=== PATIENT | female | born 1950 | race Caucasian/White ===

== ENCOUNTER 2021-01-26 09:15 | Outpatient (CLI) | payer OTHER | END 2021-01-26 09:18 | disposition home or self-care (01) | LOC: SONOGRAMA 09:15 | PROVIDERS: ATTEND Pathology Anatomic Pathology & Clinical Pathology | DX: E04.1 Nontoxic single thyroid nodule (principal) ==

== ENCOUNTER 2024-02-03 11:43 | Inpatient (IN) | payer OTHER ==
[~2024-02-03] VITALS: Ht 162.6 cm; Wt 58.1 kg
[2024-02-03] MEDS ORDERED: PRED FORTE5 ML (11:48)
[2024-02-03] MEDS ORDERED: CANDESARTAN CILE8 M1 (11:48)
--- NOTE | 2024-02-03 11:59 | NUR ---
PTE ALERTA Y ORIENTADA X3, LA MISMA SE OBSERVA CON ATAQUE DE ASMA, REFIERE QUE LLEVA ASI HACE 3 ELIAS. SAT.91% 133LPM SE REALIZA EKG Y SE PRESENTA A . SE UBICA EN AU.
[2024-02-03] MEDS ORDERED: LEVALBUTEROL HCL 1.25 MG/3 ML SOLUTION IH SCH ×2 (12:15→21:00)
[2024-02-03] MEDS ORDERED: 0.9 % SODIUM CHLORIDE 1,000 ML IV SCH ×2 (12:15→19:45)
[2024-02-03] MEDS ORDERED: METHYLPREDNISOLONE SOD SUCC 125 MG VIAL IV ONE (12:15)
--- NOTE | 2024-02-03 12:29 | NUR ---
SE EDUCA A PTE SOBRE TX A REALIZAR LA MISMA REFIERE ENTENDER. SE REALIZAN MUESTRAS JEOVANNY ORDEN MEDICA Y SE CANALIZA PTE COLOCANDOLE IVFLUIDS. SE COLOCA CANULA NASAL A 2 LITROS Y SE RAFAEL PTE EN [place].
[2024-02-03 12:32] LABS: HEMATOCRIT 39.5 % (36.0-45.00); HEMOGLOBIN 13.1 g/dL (12.0-15.00); MEAN CORPUSCULAR HEMOGLOBIN 28.9 pg (27.00-32.0); MEAN CORPUSCULAR HGB CONC 33.2 g/dl (32.0-36.0); PLATELET COUNT 248 K/uL (150-450); RED BLOOD COUNT 4.54 M/uL (4.00-6.00); RED CELL DISTRIBUTION WIDTH 14.6 % (11.5-14.5)
[2024-02-03 12:56] LABS: ABG PH 7.471 (7.35-7.45); ABG PO2 63.8 mmHg (80-100); ABG pCO2 32.8 mmHg (35-45); BASE EXCESS 0.5 mmol/l; BICARBONATE 23.4 mmol/l (23-25); SaO2 93.6 %; Tco2 24.4 mmol/l
[2024-02-03 12:56] LABS: ALBUMIN 3.4 gm/dL (3.4-5.0); BILIRUBIN TOTAL 0.56 mg/dL (0.3-1.2); CALCIUM 10.6 mg/dL (8.5-10.1); CREATININE SERUM 1.17 mg/dL (0.55-1.02); GFR 45.22; GLOBULINA 4.4 G/DL (2.4-3.5); POTASSIUM 4.28 mEq/L (3.5-5.1); TOTAL PROTEIN 7.8 gm/dL (6.4-8.2)
[2024-02-03 12:57] LABS: allen test SATISFACTORY; o2 21 %; puncture site RADIAL RIGHT
[2024-02-03] MEDS ORDERED: CEFEPIME HCL 2,000 MG VIAL IV ONE (14:00)
[2024-02-03] MEDS ORDERED: ACETAMINOPHEN 500 MG GEL..CAP PO ONE (14:00)
[2024-02-03] MEDS ORDERED: ACETAMINOPHEN 500 MG GEL..CAP PO PRN (19:45)
[2024-02-03] MEDS ORDERED: MONTELUKAST SODIUM 10 MG TABLET PO SCH (19:47)
[2024-02-03] MEDS ORDERED: CEFTRIAXONE SODIUM 2,000 MG in 0.9 % SODIUM CHLORIDE 100 ML IV SCH (19:48)
[2024-02-03] MEDS ORDERED: ONDANSETRON HCL 4 MG in 0.9 % SODIUM CHLORIDE 50 ML IV PRN (20:00)
[2024-02-03] MEDS ORDERED: GUAIFEN/DEXTROMETHORPHAN/PE 10 ML BLIST.PACK PO SCH (21:00)
[2024-02-03] MEDS ORDERED: AZITHROMYCIN 500 MG in DEXTROSE 5 % IN WATER 250 ML IV SCH (21:00)
[2024-02-03] MEDS ORDERED: IPRATROPIUM BROMIDE 0.5 MG/2.5 ML AMPUL.NEB IH SCH (21:00)
[2024-02-03] MEDS ORDERED: METHYLPREDNISOLONE SOD SUCC 40 MG VIAL IV SCH (21:00)
[2024-02-03 21:29] LABS: URINE APPEARANCE Cloudy; URINE BILIRRUBIN Small (NEGATIVE); URINE BLOOD Negative; URINE COLOR Dark Yellow; URINE GLUCOSE Negative (NEGATIVE); URINE LEUKOCYTE Negative; URINE NITRATE Negative; URINE PROTEIN 30 (NEGATIVE)
[2024-02-03 21:30] LABS: MAGNESIUM 2.2 mg/dL (1.8-2.4)
[2024-02-03 21:30] LABS: URINE BACTERIA 200.3 uL (0.0-1933); URINE EPITHELIAL CELLS 52.4 uL (0.0-38.8); URINE RBC 40.4 uL (0.0-20.8); URINE WBC 16.2 uL (0.0-23.2)
[2024-02-03 21:33] LABS: D DIMER 0.86 MG/L; PARTIAL THROMBOPLASTIN TIME 30.6 SECONDS (22.0-34.0)
[2024-02-03 21:34] LABS: INR 1.06; PROTHROMBIN TIME 11.1 SECONDS (9.0-11.5)
[2024-02-03 21:51] LABS: C-REACTIVE PROTEIN 17.3 MG/DL (0.00-0.29)
[2024-02-03 22:03] LABS: URINE CRYSTALS MODERATE /HPF
[2024-02-04] MEDS ORDERED: IPRATROPIUM BROMIDE 0.5 MG/2.5 ML AMPUL.NEB IH SCH (09:00)
[2024-02-04] MEDS ORDERED: FAMOTIDINE/PF 20 MG in 0.9 % SODIUM CHLORIDE 8 ML IV PUSH SCH (09:00)
[2024-02-04] MEDS ORDERED: CANDESARTAN CILEXETIL 8 MG TAB PO SCH (09:00)
[2024-02-04] MEDS ORDERED: ENOXAPARIN SODIUM 40 MG/0.4 ML SYRINGE SUBCUTANEO SCH (09:00)
[2024-02-04] MEDS ORDERED: AMLODIPINE BESYLATE 2.5 MG TABLET PO SCH (09:00)
[2024-02-05 08:07] LABS: HEMATOCRIT 33.4 % (36.0-45.00); MEAN CELL VOLUME 86.3 fL (80.00-100.00); MEAN CORPUSCULAR HEMOGLOBIN 28.3 pg (27.00-32.0); MEAN CORPUSCULAR HGB CONC 32.8 g/dl (32.0-36.0); PLATELET COUNT 231 K/uL (150-450); RED BLOOD COUNT 3.87 M/uL (4.00-6.00); RED CELL DISTRIBUTION WIDTH 14.6 % (11.5-14.5)
[2024-02-05 08:52] LABS: ALBUMIN 2.8 gm/dL (3.4-5.0); BILIRUBIN TOTAL 0.28 mg/dL (0.3-1.2); CALCIUM 9.6 mg/dL (8.5-10.1); CREATININE SERUM 0.83 mg/dL (0.55-1.02); GFR 67.2; GLOBULINA 3.1 G/DL (2.4-3.5); MAGNESIUM 2.5 mg/dL (1.8-2.4); PHOSPHOROUS 2.3 mg/dL (2.5-4.9); POTASSIUM 4.82 mEq/L (3.5-5.1); TOTAL PROTEIN 5.9 gm/dL (6.4-8.2)
[2024-02-05 09:00] LABS: MYCOPLASMA PNEUMONIAE IGM NON REACTIVE (NO REACTIVE)
[2024-02-05] MEDS ORDERED: VANCOMYCIN HCL 1,000 MG VIAL IV SCH (17:00)
[2024-02-05] MEDS ORDERED: CEFEPIME HCL 2,000 MG VIAL IV SCH (21:00)
[2024-02-06] MEDS ORDERED: AMLODIPINE BESYLATE 5 MG TABLET PO SCH (09:00)
[2024-02-06] MEDS ORDERED: METHYLPREDNISOLONE SOD SUCC 40 MG VIAL IV SCH (09:00)
[2024-02-06] MEDS ORDERED: SODIUM CHLORIDE 0.45 % 1,000 ML IV SCH (10:30)
[2024-02-06 11:27] LABS: ABG PO2 173.1 mmHg (80-100); ABG pCO2 46.6 mmHg (35-45); BASE EXCESS 1.2 mmol/l; BICARBONATE 26.9 mmol/l (23-25); SaO2 99.5 %; Tco2 28.3 mmol/l; allen test SATISFACTORY; o2 32 %; puncture site RADIAL LEFT
[2024-02-06] MEDS ORDERED: PANTOPRAZOLE SODIUM 40 MG TABLET.DR PO SCH (12:00)
[2024-02-06] MEDS ORDERED: IPRATROPIUM BROMIDE 0.5 MG/2.5 ML AMPUL.NEB IH SCH (13:00)
[2024-02-06] MEDS ORDERED: BUDESONIDE 0.5 MG/2 ML AMPUL.NEB IH SCH (13:00)
[2024-02-06] MEDS ORDERED: RIVAROXABAN 10 MG TAB PO SCH (17:00)
[2024-02-07 07:20] LABS: HEMATOCRIT 36.6 % (36.0-45.00); MEAN CELL VOLUME 86.7 fL (80.00-100.00); MEAN CORPUSCULAR HEMOGLOBIN 28.3 pg (27.00-32.0); MEAN CORPUSCULAR HGB CONC 32.7 g/dl (32.0-36.0); PLATELET COUNT 245 K/uL (150-450); RED BLOOD COUNT 4.23 M/uL (4.00-6.00); RED CELL DISTRIBUTION WIDTH 14.7 % (11.5-14.5)
[2024-02-07 08:00] LABS: ALBUMIN 2.8 gm/dL (3.4-5.0); BILIRUBIN TOTAL 0.36 mg/dL (0.3-1.2); CALCIUM 9.2 mg/dL (8.5-10.1); CREATININE SERUM 0.61 mg/dL (0.55-1.02); GFR 95.88; GLOBULINA 3.2 G/DL (2.4-3.5); POTASSIUM 4.47 mEq/L (3.5-5.1)
[2024-02-07 08:02] LABS: C-REACTIVE PROTEIN 3.83 MG/DL (0.00-0.29)
[2024-02-07] MEDS ORDERED: METHYLPREDNISOLONE SOD SUCC 40 MG VIAL IV SCH (09:00)
[2024-02-07] MEDS ORDERED: CANDESARTAN CILEXETIL 16 MG TABLET PO SCH (09:00)
[2024-02-09] MEDS ORDERED: BUDESONIDE 0.5 MG/2 ML AMPUL.NEB IH SCH (09:00)
[2024-02-09] MEDS ORDERED: IPRATROPIUM BROMIDE 0.5 MG/2.5 ML AMPUL.NEB IH SCH (09:00)
[2024-02-10 08:40] LABS: HEMATOCRIT 37.1 % (36.0-45.00); HEMOGLOBIN 12.2 g/dL (12.0-15.00); MEAN CELL VOLUME 86.4 fL (80.00-100.00); MEAN CORPUSCULAR HEMOGLOBIN 28.4 pg (27.00-32.0); MEAN CORPUSCULAR HGB CONC 32.8 g/dl (32.0-36.0); PLATELET COUNT 285 K/uL (150-450); RED BLOOD COUNT 4.29 M/uL (4.00-6.00); RED CELL DISTRIBUTION WIDTH 14.4 % (11.5-14.5)
[2024-02-10 09:11] LABS: ALBUMIN 2.8 gm/dL (3.4-5.0); CALCIUM 9.5 mg/dL (8.5-10.1); CREATININE SERUM 0.64 mg/dL (0.55-1.02); GFR 90.71; PHOSPHOROUS 2.3 mg/dL (2.5-4.9); POTASSIUM 4.23 mEq/L (3.5-5.1)
[2024-02-10 12:25] LABS: ABG PH 7.512 (7.35-7.45); ABG pCO2 43.3 mmHg (35-45); BASE EXCESS 9.8 mmol/l; BICARBONATE 33.9 mmol/l (23-25); SaO2 95.2 %; Tco2 35.2 mmol/l; allen test SATISFACTORY; o2 21 %; puncture site RADIAL RIGHT
[2024-02-10] MEDS ORDERED: POTASSIUM PHOS,M-BASIC-D-BASIC 18 MM in 0.9 % SODIUM CHLORIDE 250 ML IV NR (13:00)
[2024-02-10] MEDS ORDERED: METHYLPREDNISOLONE ACETATE 80 MG/ML VIAL IM NR (13:00)
[2024-02-11] MEDS ORDERED: IPRATROPIU0.2 MG/1 M IH (08:11)
[2024-02-11] MEDS ORDERED: AMLODIPINE BESYL5 MG PO (08:12)
[2024-02-11] MEDS ORDERED: BUDESONIDE0.5 MG/2 M IH (08:12)
[2024-02-11] MEDS ORDERED: ATACAND16 MG PO (08:12)
[2024-02-11] MEDS ORDERED: XARELTO10 MG PO (08:12)
[2024-02-11] MEDS ORDERED: MONTELUKAST SOD10 MG PO (08:13)
[2024-02-11] MEDS ORDERED: PREDNISONE20 MG PO (08:13)
[2024-02-11] MEDS ORDERED: PANTOPRAZOLE SO40 MG PO (08:13)
[2024-02-11] MEDS ORDERED: TRELEGY ELLIPT1 EACH IH (08:13)
[2024-02-11] MEDS ORDERED: PREDNISONE 20 MG TABLET PO SCH (09:00)
[2024-02-11] MEDS ORDERED: CANDESARTAN CILEXETIL 16 MG TABLET PO SCH (09:00)
[2024-02-13 11:08] LABS: quan ag 0.01 IU/mL (.); quan ag 0.03 IU/mL (.); quan mito 1.03 IU/mL (.); quant nil 0.01 IU/mL (.)
== END 2024-02-11 09:19 | disposition home or self-care (01) | DRG 194 ==
LOC: ER 11:44 → MEDJ 20:06
PROVIDERS: General Practice; Internal Medicine; Internal Medicine Infectious Disease; ADMIT Internal Medicine; ATTEND Internal Medicine
PROC: BW24ZZZ Computerized Tomography (CT Scan) of Chest and Abdomen (ICD-10-PCS; 2024-02-03)
PROC: 4A12X4Z Monitoring of Cardiac Electrical Activity, External Approach (ICD-10-PCS; principal; 2024-02-10)
DX: J18.9 Pneumonia, unspecified organism (principal); E27.40 Unspecified adrenocortical insufficiency; J44.1 Chronic obstructive pulmonary disease with (acute) exacerbation; D86.0 Sarcoidosis of lung; I10 Essential (primary) hypertension